=== PATIENT | male | born 1940 | race Caucasian/White ===

== ENCOUNTER 2018-11-24 20:50 | Emergency (ER) | payer MEDICARE, BC ==
[2018-11-24] MEDS: SODIUM CHLORIDE 0.9% 1000ML 1,000 ML IV ONE (21:00)
[2018-11-24 21:02] VITALS: TEMP 97.9
[2018-11-24 21:33] LABS: BASOPHILS % (AUTO) 1 % (0-3); EOSINOPHILS % (AUTO) 1 % (0-9); HEMATOCRIT 44 % (39-53); HEMOGLOBIN 14.9 gm/dl (13.5-17.7); LYMPHOCYTES % (AUTO) 12.8 % (10-50); MEAN CORPUSCULAR HEMOGLOBIN 30.1 pg (27.0-32.0); MEAN CORPUSCULAR HGB CONC 33.7 gm/dl (32.0-36.0); MEAN CORPUSCULAR VOLUME 89 fL (80-100); MONOCYTES % (AUTO) 5.5 % (0-12); NEUTROPHILS % (AUTO) 79.6 % (37-80)
[2018-11-24 21:52] LABS: ALBUMIN 3.6 gm/dl (3.4-5.0); ALKALINE PHOSPHATASE 67 IU/L (46-116); ALT 26 IU/L (14-63); AST 18 IU/L (15-37); BILIRUBIN,TOTAL 0.4 mg/dl (0.2-1.0); BLOOD UREA NITROGEN 19 mg/dl (7-18); CALCIUM 8.7 mg/dl (8.5-10.1); CARBON DIOXIDE 25.2 mEq/L (21-32); CHLORIDE 106 mMol/L (98-107); CREATININE 1.22 mg/dl (0.80-1.30); GLUCOSE 121 mg/dl (74-106); POTASSIUM 4.6 mMol/L (3.5-5.1); SODIUM 141 mMol/L (136-145); TOTAL PROTEIN 6.8 gm/dl (6.4-8.2); TROP I < 0.017 ng/ml (0.000-0.056)
[2018-11-24] MEDS: CLONIDINE 0.1 MG TAB PO ONE ×2 (21:52→22:48)
[2018-11-24] MEDS ORDERED: CLONIDINE 0.1 MG TAB ONE ×2 (21:53→22:48)
[2018-11-24 22:37] LABS: APPEARANCE,URINE Cloudy; BILIRUBIN,URINE 2+ (NEGATIVE); COLOR,URINE Red; GLUCOSE, URINE (UA) NEGATIVE (NEGATIVE); KETONES,URINE TRACE (NEGATIVE); LEUKOCYTE ESTERASE ,URINE NEGATIVE (NEGATIVE); NITRATE,URINE NEGATIVE (NEGATIVE); OCCULT BLOOD,URINE 3+ (NEG-TRACE)
[2018-11-24 22:53] LABS: BACTERIA UNABLE (< 1+); CRYSTALS UNABLE (0-3 AVE/HPF); EPITHELIAL CELLS UNABLE (SQUAMOUS); ICTOTEST,URINE NEGATIVE (NEGATIVE); RBC,URINE PACKED FIELDS (0-3AV/HPF); WBC,URINE UNABLE TO ENUMERATE (0-5AV/HPF)
[2018-11-24] MEDS ORDERED: CEFTRIAXONE 1 GM PDS ONE (23:51)
[2018-11-25] MEDS: CEFTRIAXONE 1 GM (PREMIX) 1 GM/50 ML SOL IV ONE
[2018-11-25 01:47] VITALS: BP 138/78; PULSE 63; RESP 15; O2SAT 96
== END 2018-11-25 00:46 | disposition home or self-care (01) | DRG 312 ==
LOC: ED 20:50
DX: R55 Syncope and collapse (principal); R31.9 Hematuria, unspecified; R06.00 Dyspnea, unspecified
CPT/HCPCS: 36415; 70450; 71045; 80053; 81001; 83880; 84484; 85025; 87077; 87088; 87186; 93005; 96365; 96366; 99284; 99285; J0696; A9270-GY